=== PATIENT | male | born 1970 | race African-American/Black ===

== ENCOUNTER → 2016-08-11 | Outpatient (CLI) | payer OTHER ==
--- NOTE | 2016-08-11 12:27 | RAD ---
HISTORY: Chronic left hip pain. Study: Left hip three views Comparison: None. Findings: A single frontal view of the pelvis demonstrates the pelvic ring to be intact. No evidence for acut e cortical disruption or dislocation of the hip can be observed. Frog leg and frontal view of the h ip shows an abnormal lucency with a rim of sclerosis along superior margin of the left hip and withi n the adjacent acetabulum. Arthritic irregularity is also noted along the medial margin of the left femoral head. Impression: 1. 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 This appearance raises concern for the possibility of prior injury with possible osteonecrosis. 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 2. Would consider an MRI examination of the left hip for further evaluation. Reported By:
== END | disposition home or self-care (01) | DRG 556 ==
LOC: RAD 11:54
PROVIDERS: ATTEND Internal Medicine
DX: M25.552 Pain in left hip (principal); M89.552 Osteolysis, left thigh
CPT/HCPCS: 73501